=== PATIENT | male | born 1970 | race Caucasian/White ===

== ENCOUNTER → 2021-03-21 | Outpatient (CLI) | payer BC ==
--- NOTE | 2021-03-21 07:45 | US ---
EXAMINATION TYPE: US duplex aorta DATE OF EXAM: 03/21/2021 COMPARISON: NONE CLINICAL HISTORY: I10 HTN, Z82.49 Family of heart disease. EXAM MEASUREMENTS: Abdominal Aorta: TRVx AP Proximal: 2.6x2.8cm Mid: 1.9x2.2cm Distal: 1.6x2.0cm Bifurcation: 1.0x1.1cm 1.1x0.9cm incidental heterogenous head of pancreas noted. IMPRESSION: 1. No evidence for abdominal aortic aneurysm. 2. Nonspecific heterogeneity of the pancreatic head. Consider dedicated CT.
== END | disposition home or self-care (01) ==
LOC: RADUSWWP 07:04
PROVIDERS: ATTEND Family Medicine
DX: I10 Essential (primary) hypertension (principal); Z82.49 Family history of ischemic heart disease and other diseases of the circulatory system
CPT/HCPCS: 93979